=== PATIENT | male | born 1965 | race Hispanic/Latino ===

== ENCOUNTER → 2018-01-20 | Outpatient (CLI) | payer BC ==
--- NOTE | 2018-01-20 10:29 | Diagnostic Imaging Report ---
PROCEDURE:X-RAY ABDOMEN - KUB COMPARISON:None. INDICATIONS:CALCULUS OF KIDNEY FINDINGS: There is a non-obstructed bowel-gas pattern. 3.2 mm calculus projects over the superior pole the right kidney. There are no calcifications projected over the left renal shadow, expected course of the ureters or bladder. There are no acute osseous abnormalities. The lung bases are clear. CONCLUSION: Right nephrolithiasis. Dictated by: Rashel Yeh M.D. on 01/20/2018 at 10:28 Electronically approved by: Rashel Yeh M.D. on 01/20/2018 at 10:28
== END ==
LOC: RAD 09:21
PROVIDERS: ATTEND Urology
DX: N20.0 Calculus of kidney (principal)
CPT/HCPCS: 74018

== ENCOUNTER → 2018-08-05 | Outpatient (CLI) | payer BC ==
--- NOTE | 2018-08-05 10:32 | Diagnostic Imaging Report ---
PROCEDURE:X-RAY ABDOMEN - KUB COMPARISON:None. INDICATIONS:CALCULUS OF KIDNEY FINDINGS: 3 mm calculus projecting over the upper pole of the right renal shadow described on the comparison examination is not evident on the current study and may be obscured by overlying bowel gas. Pelvic phleboliths. No suspicious calcification projects over the renal shadows or expected ureteral courses. Bowel gas pattern is nonobstructive. Regional skeletal structures are intact. CONCLUSION: No plain film evidence of urolithiasis. Previously described small right upper pole renal calculus is not evident on the current study. Dictated by: Javier Laws M.D. on 08/05/2018 at 10:38 Electronically approved by: Javier Laws M.D. on 08/05/2018 at 10:38
== END ==
LOC: RAD 10:03
PROVIDERS: ATTEND Urology
DX: N20.0 Calculus of kidney (principal)
CPT/HCPCS: 74018

== ENCOUNTER → 2019-02-01 | Outpatient (CLI) | payer BC ==
--- NOTE | 2019-02-01 10:25 | Diagnostic Imaging Report ---
EXAM: ABDOMEN-1VIEW (KUB) DATE: 02/01/2019 8:48 AM INDICATION: Kidney stone COMPARISON: None FINDINGS: 2 supine views of the abdomen show a normal distribution of air in the small and large bowel. There is a faint 5 mm calcification projected on the upper pole right kidney, which may represent a small renal calculus or may be related to overlying bowel content. No other abnormal calcification projected on either kidney or the expected path of either ureter. Phleboliths are seen in the pelvis. No acute bony abnormality. IMPRESSION: 1. No bowel dilatation or evidence for obstruction. 2. There is a 5 mm calcification projected on the upper portion of the right kidney, which may represent a small intrarenal calculus or be related to overlying bowel content. No other abnormal calcifications seen. Signed by: Dr. Timothy Young M.D. on 02/01/2019 10:21 AM
== END ==
LOC: RAD 08:41
PROVIDERS: ATTEND Urology
DX: N20.0 Calculus of kidney (principal)
CPT/HCPCS: 74018